=== PATIENT | male | born 1955 | race Caucasian/White ===

== ENCOUNTER → 2020-08-17 15:16 | Outpatient (CLI) | payer MEDICARE, SELFPAY ==
[2020-08-17 17:40] LABS: Prostate Specific Ag Screen 0.6 ng/ml (0.0-4.0)
== END ==
PROVIDERS: Visit Provider Urology
DX: Z12.5 Encounter for screening for malignant neoplasm of prostate (principal)
CPT/HCPCS: 36415; G0103

== ENCOUNTER → 2021-08-17 14:36 | Outpatient (CLI) | payer MEDICARE, SELFPAY ==
[2021-08-17 16:08] LABS: Prostate Specific Ag Screen 0.6 ng/ml (0.0-4.0)
== END ==
PROVIDERS: Visit Provider Urology
DX: Z12.5 Encounter for screening for malignant neoplasm of prostate (principal)
CPT/HCPCS: 36415; G0103